=== PATIENT | female | born 1955 | race Caucasian/White ===

== ENCOUNTER → 2016-09-23 | Outpatient (CLI) | payer BC ==
--- NOTE | 2016-09-23 14:52 | MAMMOGRAPHY REPORT ---
UNILATERAL LEFT DIGITAL DIAGNOSTIC MAMMOGRAM TOMOSYNTHESIS WITH CAD AND TARGETED LEFT ULTRASOUND: CLINICAL HISTORY: Six-month follow-up of left breast masses. TECHNIQUE: Breast tomosynthesis in addition to standard 2D mammography was performed. Current study was also evaluated with a Computer Aided Detection (CAD) system. Left CC and MLO 2-D and tomosynth esis images were obtained. COMPARISON: Comparison is made to exams dated: 03/22/2016 ultrasound, 03/22/2016 mammogram, 03/11/2016 mammogram, and 09/03/2013 mammogram - [facility]. BREAST COMPOSITION: There are scattered areas of fibroglandular density in the left breast. FINDINGS: There are no suspicious masses, calcifications, or areas of architectural distortion note d in the left breast mammographically. The previously seen small circumscribed benign-appearing 4 m m mass in the left 3 to 4:00 breast is no longer evident, and is benign and compatible with a resolv ing cyst. Scattered benign-appearing calcifications are not significantly changed. Targeted ultrasound was performed of the area of the previously seen left breast masses. In the lef t breast at 4:00, 1 cm from the nipple, there is an oval circumscribed anechoic mass with a thin int ernal septation measuring 3 x 2 x 3 mm. This is not significantly changed compared to the February 2016 exam (this was labeled as left breast at 5:00 periareolar region on the prior exam). In the left b reast at 3:00, 1 cm from the nipple, there are 2 adjacent hypoechoic cystic-appearing masses, which measure 4 mm in conglomerate, unchanged (this was previously labeled as left breast at 4:00, 1 cm fr om the nipple). In the left breast at 2:00 periareolar region, again noted is an oval circumscribed hypoechoic benign-appearing mass, which is also stable compared to the prior exam, currently measur ing 4 x 4 mm. In the left breast at 5:00 periareolar region, again noted is an oval circumscribed h ypoechoic benign-appearing mass which measures 4 x 3 mm, and is unchanged compared to the February 2016 exam. Given the circumscribed benign morphology of the masses and given the multiplicity, they are benign and felt to represent complicated cysts. IMPRESSION: ACR BI-RADS CATEGORY 2: BENIGN, TARGETED ULTRASOUND ACR BI-RADS CATEGORY 2: BENIGN Small benign-appearing hypoechoic masses in the left breast are stable compared to the February 2016 exa m, and are considered benign and felt to represent complicated cysts. There is no mammographic or t argeted sonographic evidence of malignancy. Return to annual mammogram screening schedule is recomme nded, due February 2017. The patient has been verbally notified of the results. Approximately 10% of breast cancers are not detected with mammography. A negative mammographic repor t should not delay biopsy if a clinically suggestive mass is present. Jade Nielsen M.D. ah/:09/23/2016 12:38:53 Stationary Equipment Mechanic: Coleen CUEVAS(Ashley)(M), [facility] letter sent: Normal 1/2 BI-RADS Code: ACR BI-RADS Category 2: Benign Ultrasound BI-RADS: ACR BI-RADS Category 2: Benign
== END | disposition home or self-care (01) ==
LOC: C.MAMM 10:23
PROVIDERS: ATTEND Family Medicine
DX: N63 Unspecified lump in breast (principal)